=== PATIENT | male | born 1970 | race Caucasian/White ===

== ENCOUNTER 2020-01-15 21:48 | Emergency (ER) | payer SELFPAY ==
[~2020-01-15] VITALS: Ht 172.7 cm; Wt 69.0 kg
[2020-01-15] MEDS ORDERED: SODIUM CHLORIDE 0.9% 1,000 ML IV ONE ×3 (22:30→22:45)
[2020-01-15 23:43] LABS: BASOPHILS % 0.4 % (0.0-2.0); EOSINOPHILS % 0.5 % (0.0-5.0); HEMATOCRIT. 42.8 % (42.0-52.0); HEMOGLOBIN. 14.9 g/dL (14.0-18.0); LYMPHOCYTES % 12.9 % (20.0-50.0); MEAN CORPUSCULAR HEMOGLOBIN 34.1 pg (28.0-32.0); MEAN CORPUSCULAR VOLUME 97.8 fL (80.0-94.0); MONOCYTES % 6.3 % (2.0-8.0); NEUTROPHILS % 79.9 % (40.0-76.0); PLATELET 202 x1000/uL (130-400); RED BLOOD CELL COUNT 4.38 mill/uL (4.7-6.1); RED CELL DISTRIBUTION WIDTH 11.9 % (11.6-14.6)
[2020-01-15 23:51] LABS: CHLORIDE 99 mEq/L (98-107)
[2020-01-15 23:55] LABS: ETHANOL BLOOD 218 mg/dL
[2020-01-16 06:32] VITALS: BP 141/86
== END 2020-01-16 06:35 | disposition home or self-care (01) ==
LOC: ER 21:48
DX: E11.65 Type 2 diabetes mellitus with hyperglycemia (principal); F10.129 Alcohol abuse with intoxication, unspecified; I10 Essential (primary) hypertension; Y90.7 Blood alcohol level of 200-239 mg/100 ml
CPT/HCPCS: 36415; 71045; 80053; 80320; 82962; 83880; 84484; 85025; 93005; 96360; 99285; J7030; G0480